=== PATIENT | female | born 1950 | race Two or more races ===

== ENCOUNTER 2024-12-29 06:47 | Day surgery (SDC) | payer MEDICARE, SELFPAY ==
--- NOTE | 2024-12-23 13:07 | EXP.HP ---
History of Present Illness *Admission Date: 12/29/24 *History of present illness: Mrs. Meadows is a 74-year-old female who is here for EGD and colonoscopy. She was last seen in our practice in [place] in March 2023. She had been referred because of elevated liver enzymes and cirrhosis (well compensated). 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 Extensive workup revealed ROBLERO and cirrhosis. The patient did have a slightly elevated HÉCTOR level. She did have side effects with budesonide. The patient did have an EGD and colonoscopy (Charan Page MD), last in 2014. The patient has had a second opinion at [facility] in [place]. The examination is deemed medically necessary for EGD and colonoscopy. The patient has been seen, interviewed and examined prior to the procedure by both myself and the anesthesia provider. [facility] Disclaimer: The information contained in this section may have been updated after the patient was seen, as this information can be updated by other users. Medical History Lung nodule Stroke Morphea Cirrhosis Cataract Right carpal tunnel syndrome Right arm fracture Arthritis Osteopenia Afib Hypertension Surgical History History of arthroplasty of both shoulders History of kyphoplasty History of tonsillectomy and adenoidectomy History of breast biopsy History of hysterectomy Family History Brother Parkinsons Diabetes Heart attack Mother Alzheimer disease Father Heart attack Social History (Updated 12/29/24 @ 08:26 by Venancio Mia CRNA) Smoking Status: Never smoker alcohol intake: never substance use type: denies use current occupational status: other Travel in the last 8 weeks?: None Have you lived/traveled outside US in past 30 days?: No Contact w/someone who lives/traveled outside US past 30 days?: No Exposure to someone with infectious disease in past 14 days?: No Do you have a fever (greater than 100.4 F or 38 C)?: No Have you tested positive for COVID-19?: No Exposed to someone with COVID-19 in past 14 days?: No Do you have a sore throat?: No Do you have a cough?: No Do you have any weakness?: No Do you have any diarrhea?: No Are you experiencing any unusual bleeding?: No Do you have any muscle aches/pain?: No Do you have any abdominal pain?: No Are you experiencing loss of taste or smell?: No Review of Systems Review of Systems Review of systems (narrative): Negative *Cardiovascular Comments: Negative *Gastrointestinal Comments: Negative *Genitourinary Comments: Negative *Musculoskeletal Comments: Negative *Neurologic Comments: Negative Meds Home Medications and Allergies Home Medications ?Medication ?Instructions ?Recorded ?Confirmed ?Type sodium,potassium,mag sulfates 17.5 See Rx Instructions PO .COMPLEX 12/16/24 Rx gram-3.13 gram-1.6 gram oral soln #354 mL (Suprep Bowel Prep Kit) aspirin 81 mg tablet 81 mg PO DAILY 12/27/24 12/27/24 History hydroxychloroquine 200 mg tablet 200 mg PO BID 12/27/24 12/29/24 History (Plaquenil) hydroxyzine HCl 25 mg tablet 25 mg PO TID PRN Itching 12/27/24 12/29/24 History New Prescriptions to Start Prescriptions: Allergies Allergy/AdvReac Type Severity Reaction Status Date / Time phenazopyridine (From Allergy Rash Verified 12/29/24 07:40 Pyridium) Sulfa (Sulfonamide Allergy Rash Verified 12/29/24 07:40 Antibiotics) Exam *Routine HEENT Exam Head: Present normocephalic Eye: Present EOMI and PERRL ENT: Present mucous membranes moist *Routine Neck Exam Neck: Present supple *Routine Respiratory Exam Respiratory: Present CTA bilaterally *Routine Cardiovascular Exam Cardiovascular: Present RRR *Routine Abdominal Exam Abdominal: Present soft and normoactive bowel sounds; Absent tenderness *Routine Rectal Exam Rectal:: deferred *Routine Genitalia Exam Genitalia:: deferred *Routine Extremities Exam Extremities: Absent cyanosis, clubbing or edema *Routine Skin Exam Skin: Present warm; Absent rash *Routine Neurological Exam Neurological: Present alert and oriented X3 Assessment and Plan *Assessment and plan (1) Cirrhosis: Status: Acute Category: Medical Code(s): K74.60 - Unspecified cirrhosis of liver (2) ROBLERO (nonalcoholic steatohepatitis): Status: Acute Category: Medical Code(s): K75.81 - Nonalcoholic steatohepatitis (ROBLERO) (3) Portal hypertension: Status: Acute Category: Medical Code(s): K76.6 - Portal hypertension (4) Screening for colon cancer: Status: Acute Category: Medical Code(s): Z12.11 - Encounter for screening for malignant neoplasm of colon Plan A/P: 1. Cirrhosis with portal hypertension for upper endoscopy and screening for colon cancer with colonoscopy is the preprocedural diagnosis. The patient will be anesthetized/sedated using MAC sedation. The patient has been seen and examined. Cardiac and lung assessment prior to the examination is stable. Proceed with planned EGD and colonoscopy.
[2024-12-27 13:50] VITALS: BMI 30.9
[2024-12-29] VITALS (7 sets, daily range): BP systolic 105–148; BP diastolic 59–73; PULSE 62–71; RESP 16–18; TEMP 36.1–36.3; O2SAT 96–97
--- NOTE | 2024-12-29 06:54 | HMH.PROCNOTE ---
[facility] Procedure Note Date: 12/29/24 Time: 08:47 Procedure Note:: Upper Endoscopy Procedure Report: Esophagogastroduodenoscopy with cold biopsies Endoscopost: Gold Ocasio II, MD Referring Physician: Evelia Orosco MD Date of Procedure: December 29, 2024 Equipment: Olympus GIF-1100 standard upper endoscope Sedation: MAC sedation Indications: Mrs. Meadows is a 74-year-old female who is here for EGD and colonoscopy. The upper endoscopy is to evaluate for portal hypertension/esophageal varices and the colonoscopy is for screening. The patient reports no abdominal pain, weight loss, change in her bowel habits or rectal bleeding. She reports no family history of esophageal, gastric or colon cancer. She reports no heartburn, reflux or dysphagia. She has not had any increased abdominal girth or encephalopathy. She was last seen in our practice in [place] in March 2023. She had been referred because of elevated liver enzymes and cirrhosis (well compensated). 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 Extensive workup revealed ROBLERO and cirrhosis. The patient did have a slightly elevated HÉCTOR level. She did have side effects with budesonide. The patient did have an EGD and colonoscopy (Charan Page MD), last in 2014. The patient has had a second opinion at [facility] in [place]. The examination is deemed medically necessary for EGD and colonoscopy. Procedure: Prior to the procedure, a history and physical exam was performed, and patient's medications and allergies were reviewed. The risks, benefits and alternatives of the sedation and procedure were discussed with the patient. All questions were answered and informed consent was obtained. The patient was brought to the procedure room. Patient identification and proposed procedure were verified by the physician and the nurse. The patient was placed in a left lateral decubitus position and the scope was passed under direct vision. Throughout the procedure, the patient's blood pressure, pulse, and oxygen saturations were monitored continuously. The upper GI endoscopy was accomplished without difficulty. The patient tolerated the procedure well. Findings: The scope was passed directly into the upper esophagus and advanced to the third portion of the duodenum. The post bulbar duodenum, ampulla and duodenal bulb were normal with normal mucosa and conniventes. The scope was withdrawn through a normal duodenal bulb and pylorus into the stomach. There was minimal prepyloric antral gastropathy and the remainder of the body and fundus of the stomach were normal. A cold biopsy was taken from the antrum. Upon retroflexion there was a small 1 to 2 cm hiatal hernia. There were no gastric fundic varices. There was no evidence of portal gastropathy or GAVE. The scope was then withdrawn into the esophagus. There was no evidence of reflux esophagitis or Whatley's. There were no esophageal varices and the remainder of the esophageal mucosa was normal. Impression: 1. Very small sliding hiatal hernia 2. No endoscopic evidence of portal hypertension or varices Plan: I will follow-up the biopsies and proceed with screening colonoscopy. I will obtain labs today including MELD score, AFP and ammonia level. We will establish routine follow-up for her well compensated cirrhosis.
--- NOTE | 2024-12-29 06:55 | HMH.PROCNOTE ---
[facility] Procedure Note Date: 12/29/24 Time: 09:01 Procedure Note:: Colonoscopy Procedure Report: Colonoscopy with cold snare polypectomy Endoscopist: Gold Ocasio II, MD Referring physician: Evelia Orosco MD Date of Procedure: December 29, 2024 Equipment: Olympus [id number] adult colonoscope Sedation: MAC sedation Indication: Mrs. Meadows is a 74-year-old female who is here for EGD and colonoscopy. The upper endoscopy is to evaluate for portal hypertension/esophageal varices and the colonoscopy is for screening. The patient reports no abdominal pain, weight loss, change in her bowel habits or rectal bleeding. She reports no family history of esophageal, gastric or colon cancer. She reports no heartburn, reflux or dysphagia. She has not had any increased abdominal girth or encephalopathy. She was last seen in our practice in [place] in March 2023. She had been referred because of elevated liver enzymes and cirrhosis (well compensated). 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 Extensive workup revealed ROBLERO and cirrhosis. The patient did have a slightly elevated HÉCTOR level. She did have side effects with budesonide. The patient did have an EGD and colonoscopy (Charan Page MD), last in 2014. The patient has had a second opinion at [facility] in [place]. The examination is deemed medically necessary for EGD and colonoscopy. Procedure: Prior to the procedure, a history and physical exam was performed, and patient's medications and allergies were reviewed. The risks, benefits and alternatives of the sedation and procedure were discussed with the patient. All questions were answered and informed consent was obtained. The patient was brought to the procedure room. Patient identification and proposed procedure were verified by the physician and the nurse. The patient was placed in a left lateral decubitus position and the scope was passed under direct vision. Throughout the procedure, the patient's blood pressure, pulse, and oxygen saturations were monitored continuously. The colonoscopy was accomplished without difficulty. The patient tolerated the procedure well. Findings: On digital rectal examination there was normal rectal tone. There were no external hemorrhoids. The colonoscope was introduced through the anal canal to the rectum and advanced to the cecum. The ileocecal valve and appendiceal orifice were identified. The scope was advanced a short distance into the ileum which appeared grossly normal. The scope was then withdrawn into the colon. There was a very small 3 to 4 mm diminutive polyp in the cecum at the appendiceal orifice that was removed via cold snare polypectomy. The remaining cecum, ascending and transverse colon and mucosa were grossly normal. There were scattered diverticuli throughout the descending and sigmoid colon (LEFT colon). The rectum itself was normal. Upon retroflexion within the rectum there were grade 1 internal hemorrhoids. The preparation was excellent throughout with [place] Preparation Score of 9. The cecal time was 12 minutes. Impression: 1. Diminutive cecal polyp (3 to 4 mm) 2. Left-sided diverticulosis 3. Grade 1 internal hemorrhoids Plan: I will follow-up the polyp histology. We will discuss whether further preventative/screening is warranted. I will recommend psyllium bulking fiber supplementation on a maintenance basis.
[2024-12-29] MEDS: LACTATED RINGERS 1000ML 1,000 ML 50 ML IV (07:45)
--- NOTE | 2024-12-29 08:25 | P.PNANES_ITS ---
[facility] Disclaimer: The information contained in this section may have been updated after the patient was seen, as this information can be updated by other users. Medical History Lung nodule Stroke Morphea Cirrhosis Cataract Right carpal tunnel syndrome Right arm fracture Arthritis Osteopenia Afib Hypertension Surgical History History of arthroplasty of both shoulders History of kyphoplasty History of tonsillectomy and adenoidectomy History of breast biopsy History of hysterectomy Family History Brother Parkinsons Diabetes Heart attack Mother Alzheimer disease Father Heart attack Social History Smoking Status: Never smoker alcohol intake: never substance use type: denies use current occupational status: other Travel in the last 8 weeks?: None [facility] Anesthesia Checklist Patient Identification Patient Identification: Arm Band Structural Data Admitted From: Home Planned Operative Procedure/s: EGD/Colonoscopy Consent for Planned Operative Procedure(s) Verified: Yes Verified Documents: Surgical Consent and History and Physical NPO Status Verified Time NPO: 04:30 (finished prep) Additional verifications Anesthesia Reactions: No Airway Assessment Mallampati Score:: Class II C-Spine Mobility Assessed: Yes TMJ Mobility Assessed: Yes Dentition: Good Dentition Neurological Assessment Level of Consciousness: Awake, Alert and Appropriate Anesthesia Plan Anesthesia Risk discussed: Yes Anesthesia Plan: Verified ASA Class: III Anesthesia Type: MAC
[2024-12-29 09:53] LABS: Hematocrit 38.9 % (37.0-47.0); Hemoglobin 13.2 g/dL (12.2-16.2); Immature Granulocytes % 0 %; Mean Corpuscular HGB Conc 33.9 g/dL (31.8-35.4); Mean Corpuscular Hemoglobin 31.7 pg (27.0-31.2); Mean Corpuscular Volume 93.3 fl (81-99); Nucleated Red Blood Cells % 0 %; Platelet Count 127 K/mm3 (142-424); Red Blood Count 4.17 M/mm3 (4.20-5.40); Red Cell Distribution Width-SD 43.5 fL; White Blood Count 3.8 K/mm3 (4.8-10.8)
[2024-12-29 10:03] LABS: Albumin Level 3.9 g/dl (3.5-5.0); Chloride 103 mmol/L (98-107); Potassium 4.0 mmoL/L (3.5-5.1); Sodium 139 mmol/L (136-145)
[2024-12-29 10:06] LABS: Alanine Aminotransferase 47 U/L (12-78); Albumin/Globulin Ratio 1.5 (1.1-1.8); Alkaline Phosphatase 85 U/L (38-126); Ammonia < 9 umol/L (9-30); Anion Gap 14.0 mEq/L (5-15); Aspartate Amino Transferase 47 U/L (14-36); Bilirubin,Total 1.0 mg/dl (0.2-1.3); Blood Urea Nitrogen 15 mg/dl (7-17); Carbon Dioxide 26 mmol/L (22.0-30.0); Creatinine Clearance Estimated 66 mL/min (50-200); Creatinine,Serum 0.60 mg/dl (0.52-1.04); Estimated Glomerular Filt Rate 98 ml/min (>60); GFR (African American) 119 ML/MIN (>60); Globulin 2.6 g/dL (1.3-3.2); INR 1.21 (0.9-1.1); Prothrombin Time 13.2 seconds (10.1-12.5); Total Protein,Serum 6.5 g/dl (6.3-8.2)
[2024-12-29 10:07] LABS: Calcium 8.7 mg/dl (8.4-10.2); Glucose 85 mg/dl (74-100)
== END 2024-12-29 09:54 | disposition home or self-care (01) ==
PROVIDERS: PCP Family Medicine; Visit Provider Internal Medicine Gastroenterology
PROC: 0DJ08ZZ Inspection of Upper Intestinal Tract, Via Natural or Artificial Opening Endoscopic (ICD-10-PCS; CPT 45378; principal; 2024-12-29 08:30)
DX: Z12.11 Encounter for screening for malignant neoplasm of colon (principal); K74.60 Unspecified cirrhosis of liver; K75.81 Nonalcoholic steatohepatitis (NASH); K76.6 Portal hypertension; D12.0 Benign neoplasm of cecum; K44.9 Diaphragmatic hernia without obstruction or gangrene; K57.30 Diverticulosis of large intestine without perforation or abscess without bleeding; K64.0 First degree hemorrhoids
CPT/HCPCS: 43239; 45385; 36415; 80053; 82105; 82140; 85025; 85610; 88305; J2003; J2704; J7120